=== PATIENT | female | born 1980 | race Caucasian/White ===

== ENCOUNTER → 2019-09-12 10:32 | Outpatient (CLI) | payer OTHER, SELFPAY ==
--- NOTE | 2019-09-12 10:42 | VDLE_ITS ---
Reason For Study: PAIN RIGHT GSV is normal. CFV is compressible, spontaneous, phasic, competent and demonstrates normal augmentation. FV is compressible, spontaneous, phasic, competent and demonstrates normal augmentation. POP V is compressible, spontaneous, phasic, competent and demonstrates normal augmentation. T/P Trunk is compressible. PTV is compressible. RT PerV is compressible. Procedure Exam performed in department. A preliminary report was called and/or faxed to LEWIS ELI. Interpretation Summary Deep veins of the right lower extremity are patent and compressible segmentally. There is no evidence of right lower extremity deep vein thrombosis. Valvular competence appears intact within the proximal deep venous system on the right . The right great saphenous vein appears patent and compressible segmentally. Ordering Physician: LEWIS ELI Referring Physician: JAMES BUENO Performed By: Evelyn Campbell, LIDIA, RVT
== END ==
PROVIDERS: PCP Preventive Medicine Occupational Medicine
DX: M17.11 Unilateral primary osteoarthritis, right knee (principal); M25.561 Pain in right knee; M79.604 Pain in right leg
CPT/HCPCS: 93971